=== PATIENT | male | born 1950 | race Caucasian/White ===

== ENCOUNTER 2020-06-20 11:37 | Outpatient (RCR) | payer MEDICARE, BC, SELFPAY | END 2020-06-20 23:59 | LOC: IMMUN 11:37 | PROVIDERS: PCP Family Medicine; Visit Provider Family Medicine | DX: Z23 Encounter for immunization (principal) | CPT/HCPCS: 0011A; 0012A ==

== ENCOUNTER → 2021-03-25 11:45 | Outpatient (CLI) | payer MEDICARE, BC, SELFPAY ==
--- NOTE | 2021-03-25 17:03 | STRESSREP ---
Stress Test Report Exercise stress test. 72-year-old man with a history of chest pain. Medications atorvastatin 80 mg. Stress protocol. Resting EKG demonstrates normal sinus rhythm with a rate of 63 bpm normal intervals are noted resting blood pressure is 128/80 mmHg. The patient exercised according to regular Oracio protocol for 6 minutes and 45 seconds. Patient completed 45 seconds into stage III of the [facility]acio protocol. The maximum heart rate attained was 126 bpm which was 85% of maximum protected heart rate the maximum workload was 9.2 metabolic equivalents. At rest there were no ST changes noted to suggest ischemia and at peak exercise approximately 1.[address] depression were noted in lead aVF and [address] depression noted in lead V6 which was also upsloping. The above did not denote ischemia. The peak blood pressure was 162/62 mmHg with a rate-pressure product of 19,602. No arrhythmias were noted. Conclusion: Exercise stress test with no EKG criteria for ischemia at high workload. Good functional aerobic capacity.
== END ==
PROVIDERS: PCP Family Medicine; Referring Provider Nurse Practitioner Primary Care; Visit Provider Nurse Practitioner Primary Care
DX: R07.9 Chest pain, unspecified (principal)
CPT/HCPCS: 93017

== ENCOUNTER → 2022-10-29 | Outpatient (CLI) | payer MEDICARE, BC, SELFPAY ==
--- NOTE | 2022-10-29 09:30 | STEWCON_ITS ---
Reason For Study: Chest Pain Stress Results Protocol: [facility] Protocol WITH DEFINITY Maximum Predicted HR: 147 bpm Target HR: 125 bpm % Maximum Predicted HR: 88 % DurationHeart Rate Stage (mm:ss) (bpm) BP Comment Baseline 64 118/78No Chest Pain; 4 ML Definity Used [facility]acio Protocol Stage I 3:00 77 124/72No Chest Pain [facility] Protocol Stage II 3:00 85 130/70No Chest Pain [facility] Protocol Stage III 3:00 89 148/60No Chest Pain [facility] Protocol Stage IV 2:30 129 160/64No Chest Pain; Mild Dyspnea Recovery 79 122/78No Chest Pain Stress Duration: 11:30 mm:ss Maximum Stress HR: 129 bpm METS: 13 Baseline Echocardiogram Findings The estimated ejection fraction is 65 %. Normal LV size. Stress Echo Wall motion Data Resting WM Intermediate WM Stress WM Resting Wall Motion No regional wall motion abnormalities noted. EKG Data The baseline ECG displays normal sinus rhythm. Sinus tachycardia with upsloping ST depressions. No significant ischemic changes. Symptoms with Stress The patient experinced No chest pain . ECHO/Stress Test Echo W/Contrast Interpretation Summary The estimated ejection fraction is 65 %. Exercise echocardiogram shows functional capacity to be excellent for age. The test is negative for exercise-induced chest pain or EKG changes of ischemia . Post exercise echocardiographic images are nondiagnostic. Ordering Physician: Vinay Linares Referring Physician: Vinay Linares Performed By: Stephany Maciel, CECE, RVT
== END | disposition home or self-care (01) ==
LOC: CVS 09:27
PROVIDERS: PCP Family Medicine; Referring Provider Family Medicine; Visit Provider Family Medicine
DX: I25.10 Atherosclerotic heart disease of native coronary artery without angina pectoris (principal)
CPT/HCPCS: 93017; 93350; Q9957; A4216; C8928

== ENCOUNTER → 2023-06-10 | Outpatient (CLI) | payer MEDICARE, BC, SELFPAY ==
--- OUTSIDE RECORDS SUMMARY | 2023-06-10 10:15 | XMS RPT_ITS | CCD ---
Author Name Unknown Address [address] [place] [address] Organization [facility] Care Team Providers Care Wind Commissioning Technician Name Role Phone Pacheco Linares MD Primary Care Provider PACHECO LINARES Attending PACHECO Anne Primary Care Unavailab PACHECO Sawyer Attending PACHECO Anne Primary Care Unavailab PACHECO Sawyer Referring Unavailab PACHECO Sawyer Primary Care Unavailab PACHECO Sawyer Referring Unavailab PACHECO Sawyer Primary Care Unavailab PACHECO Sawyer Referring Unavailab PACHECO Sawyer Primary Care UnavailPacheco Love MD Primary Care Provider Medications Current Medications Medication Drug Class(es) Dates Sig (Normalized) Sig (Original) perflutren lipid microspheres 1.3 mL in NaCl (PF) 0.9% 10 mL injection (DEFINITY) (6 sources) Start: 10-17-2022 End: 01-16-2024 perflutren lipid microspheres 1.3 mL in NaCl (PF) 0.9% 10 mL injection (DEFINITY) 125 ml sodium chloride 9 mg/ml prefilled syringe (6 sources) Start: 10-17-2022 End: 01-16-2024 sodium chloride 0.9 % (flush) 10 mL (BD POSIFLUSH) Completed/Discontinued Medications Medication Drug Class(es) Dates Sig (Normalized) Sig (Original) [id number] 200 actuat albuterol 0.09 mg/actuat metered dose inhaler (9 sources) beta2-Adrenergic Agonist Start: 04-10-2020 take 2 puff(s) by inhalation every four hours as needed for wheezing albuterol HFA (VENTOLIN HFA) 90 mcg/actuation inhaler Indications: Chronic obstructive pulmonary disease, unspecified COPD type (HCC) Inhale 2 Puffs as instructed every 4 hours as needed for Wheezing/Shortness of Breath. 18 g 2 04/10/2020 Active Problems Active Problems Problem Classification Problem Date Documented Da te Episodic/Chronic Chronic obstructive pulmonary disease and bronchiectasis (13 sources) Chronic obstructive lung disease; Translations: [Chronic obstructive pulmonary disease, unspecified] Onset: 03-25-2016 Chronic Coronary atherosclerosis and other heart disease (13 sources) Coronary atherosclerosis; Translations: [Atherosclerotic heart disease of [place] coronary artery without angina pectoris] Onset: 04-23-2021 Chronic Disorders of lipid metabolism (13 sources) Hyperlipidemia; Translations: [Hyperlipidemia, unspecified] Onset: 03-25-2016 Chronic Hemorrhoids (9 sources) External hemorrhoids; Translations: [Residual hemorrhoidal skin tags] 10-22-2016 Episodic Hyperplasia of prostate (13 sources) Benign prostatic hyperplasia; Translations: [Benign prostatic hyperplasia without lower urinary tract symptoms] Onset: 10-22-2016 Chronic Other connective tissue disease (1 source) Triggering of digit; Translations: [Trigger finger, right index finger] Episodic Other screening for suspected conditions (not mental disorders or infectious disease) (10 sources) Patient encounter status; Translations: [Encounter for screening for cardiovascular disorders] Onset: 05-21-2020 05-21-2020 Episodic Residual codes; unclassified (12 sources) Tobacco use and exposure - finding; Translations: [Tobacco use] Episodic Past or Other Problems Problem Classification Problem Date Documented Da te Episodic/Chronic Nonspecific chest pain (3 sources) Chest pain; Translations: [Chest pain, unspecified] Onset: 10-17-2022 Episodic Residual codes; unclassified (9 sources) Family history of ischemic heart disease; Translations: [Family history of ischemic heart disease and other diseases of the circulatory system] Onset: 04-16-2016 04-16-2016 Episodic Residual codes; unclassified (1 source) Tobacco use; Translations: [Tobacco use] Onset: 03-25-2016 Episodic Results Test Name Value Interpretation Reference Range Facil ity Vital Signs Date Time Vital Sign Value Performing Clinician Alicia christina 01-19-2023 10:47-0400 Body weight 63.32 kg Pacheco Linares MD Work Phone: [facility] 01-19-2023 10:47-0400 Diastolic blood pressure 60 mm[Hg] Pacheco Linares MD Work Phone: [facility] 01-19-2023 10:47-0400 Heart rate 69 /min Pacheco Linares MD Work Phone: [facility] 01-19-2023 10:47-0400 Respiratory rate 16 /min Pacheco Linares MD Work Phone: [facility] 01-19-2023 10:47-0400 SaO2% (BldA) [Mass fraction] 97 % Pacheco Linares MD Work Phone: [facility] 01-19-2023 10:47-0400 Systolic blood pressure 116 mm[Hg] Pacheco Linares MD Work Phone: [facility] 10-17-2022 09:13-0400 Body weight 62.96 kg Pacheco Linares MD Work Phone: [facility] 10-17-2022 09:13-0400 Diastolic blood pressure 66 mm[Hg] Pacheco Linares MD Work Phone: [facility] 10-17-2022 09:13-0400 Heart rate 59 /min Pacheco Linares MD Work Phone: [facility] 10-17-2022 09:13-0400 Respiratory rate 16 /min Pacheco Linares MD Work Phone: [facility] 10-17-2022 09:13-0400 SaO2% (BldA) [Mass fraction] 97 % Pacheco Linares MD Work Phone: [facility] 10-17-2022 09:13-0400 Systolic blood pressure 116 mm[Hg] Pacheco Linares MD Work Phone: [facility] 10-11-2021 10:28-0400 Body weight 69.4 kg Pacheco Linares MD Work Phone: [facility] 10-11-2021 10:28-0400 Diastolic blood pressure 72 mm[Hg] Pacheco Linares MD Work Phone: [facility] 10-11-2021 10:28-0400 Heart rate 70 /min Pacheco Linares MD Work Phone: [facility] 10-11-2021 10:28-0400 Respiratory rate 16 /min Pacheco Linares MD Work Phone: [facility] 10-11-2021 10:28-0400 SaO2% (BldA) [Mass fraction] 98 % Pacheco Linares MD Work Phone: [facility] 10-11-2021 10:28-0400 Systolic blood pressure 130 mm[Hg] Pacheco Linares MD Work Phone: [facility] Encounters Encounter Date Encounter Type Care Provider Facility Start: 01-19-2023 End: 01-19-2023 ambulatory PACHECO LINARES Facility:[facility] Start: 01-19-2023 End: 01-19-2023 Patient encounter procedure Pacheco Linares MD Work Phone: [facility] Procedures Date Procedure Procedure Detail Performing Clinician Start: 01-19-2023 INFLUENZA VACCINE, P RSV FREE, AGE 65+ YR, HIGH DOSE, QUADRIVALENT (FLUZONE HIGH-DOSE) Pacheco Linares MD Work Phone: Start: 10-17-2022 Ecg routine ecg w/le ast 12 lds i&r only [facility] Provider Start: 10-17-2022 Lipid 1996 panel - S christy or Plasma Pacheco Linares MD Work Phone: Start: 07-09-2021 Colonoscopy Juan Linares MD Work Phone: Start: 2021 Adult depression scr eening assessment Pacheco Linares MD Work Phone: Plan of Treatment Date Care Activity Detail Author Start: 07-10-2031 Colonoscopy COLONOSCOPY [facility] Start: 07-10-2031 COLORECTAL CANCER SCREENING COLORECTAL CANCER SCREENING [facility] Start: 10-18-2027 Lipid 1996 panel - S christy or Plasma Lipid Screening [facility] Start: 10-18-2027 LIPID SCREEN LIPID SCREEN [facility] Start: 07-30-2026 Urine microalbumin profile [facility] Start: 04-12-2026 LIPID SCREEN LIPID SCREEN [facility] Start: 10-17-2025 DIABETES SCREEN DIABETES SCREEN [facility] Start: 10-17-2025 Diabetes Screening Diabetes Screenin g [facility] Start: 04-12-2024 DIABETES SCREEN DIABETES SCREEN [facility] Start: 01-20-2024 Annual PCP Team Child Development Associate Teacher annalee Disease Visit Annual PCP Team Chronic Disease Visit [facility] Start: 01-20-2024 Covid-19 Vaccine (4 - Moderna series) Covid-19 Vaccine (4 - Moderna series) [facility] Immunizations Immunization Date Immunization Notes Care Provider Fa cility 01-19-2023 influenza (HD-IIV4) vaccine, age 65+ yr, high dose, quadrivalent, PF (FLUZONE HIGH-DOSE) Pacheco Linares MD Work Phone: [facility] 01-13-2023 zoster vaccine recombinant Pacheco Linares MD Work Phone: [facility] 10-17-2022 zoster vaccine recombinant Pacheco Linares MD Work Phone: [facility] 04-12-2021 influenza, high-dose , quadrivalent vaccine (FLUZONE HIGH DOSE QUADRIVALENT) Pacheco Linares MD Work Phone: [facility] 07-18-2020 COVID-19 vaccine, fu ll dose (MODERNA) Pacheco Linares MD Work Phone: [facility] 06-20-2020 COVID-19 vaccine, fu ll dose (MODERNA) Pacheco Linares MD Work Phone: [facility] 04-10-2020 influenza, high-dose , quadrivalent vaccine (FLUZONE HIGH DOSE QUADRIVALENT) Pacheco Linares MD Work Phone: [facility] 01-26-2017 influenza, high dose seasonal, preservative-free Pacheco Linares MD Work Phone: [facility] 07-30-2016 tetanus toxoid, redu madie diphtheria toxoid, and acellular pertussis vaccine, adsorbed Pacheco Linares MD Work Phone: [facility] Work Phone: 02-18-2016 hepatitis A and hepatitis B vaccine Pacheco Linares MD Work Phone: [facility] 02-18-2016 pneumococcal polysaccharide vaccine, 23 valent Pacheco Linares MD Work Phone: [facility] 02-14-2016 influenza, high dose seasonal, preservative-free Pacheco Linares MD Work Phone: [facility] 02-04-2016 influenza, injectabl e, quadrivalent, preservative free Pacheco Linares MD Work Phone: [facility] Work Phone: 03-08-2015 influenza, injectabl e, quadrivalent, contains preservative Pacheco Linares MD Work Phone: [facility] 03-08-2015 influenza, seasonal, injectable Pacheco Linares MD Work Phone: [facility] Work Phone: 11-10-2014 pneumococcal conjuga te vaccine, 13 valent Pacheco Linares MD Work Phone: [facility] 11-10-2014 varicella virus vaccine Chri batool Linares MD Work Phone: [facility] 11-10-2014 zoster vaccine, live Ravi Linares MD Work Phone: [facility] Work Phone: 02-07-2014 influenza, injectabl e, quadrivalent, contains preservative Pacheco Linares MD Work Phone: [facility] 02-07-2014 influenza, seasonal, injectable Pacheco Linares MD Work Phone: [facility] Work Phone: 04-06-2013 influenza, injectabl e, quadrivalent, contains preservative Pacheco Linares MD Work Phone: [facility] 04-06-2013 influenza, seasonal, injectable Pacheco Linares MD Work Phone: [facility] Work Phone: 02-03-2012 influenza, seasonal, injectable Pacheco Linares MD Work Phone: [facility] Work Phone: 11-14-2010 hepatitis A vaccine, adult dosage Pacheco Linares MD Work Phone: [facility] Work Phone: 11-14-2010 hepatitis A vaccine, unspecified formulation Pacheco Linares MD Work Phone: [facility] 11-14-2010 hepatitis B immune globulin Pacheco Linares MD Work Phone: [facility] 11-14-2010 hepatitis B vaccine, adult dosage Pacheco Linares MD Work Phone: [facility] Work Phone: 11-14-2010 tetanus toxoid, redu madie diphtheria toxoid, and acellular pertussis vaccine, adsorbed Pacheco Linares MD Work Phone: [facility] 02-23-2010 influenza, seasonal, injectable Pacheco Linares MD Work Phone: [facility] Work Phone: Payers Date Payer Category Payer Medicare MEDICARE MEDICAR E A AND B [id number] 2017-Present [phone] [place] [address] Medicare [id number] 2017 Medicare MEDICARE MEDICAR E A AND B [id number] 2017-Present [phone] [place] [address] Medicare [id number] 2017 Medicare [id number] 2017 Medicare [id number] 2017 Unknown MELVIN CARRIZALES DICARE SUPPLEMENT [id number] 2017-Present [phone] [address] [place] [address] Indemnity [id number] 2017 Unknown MELVIN CARRIZALES DICARE SUPPLEMENT [id number] 2017-Present [phone] [address] [place] [address] Indemnity [id number] Social History Date Type Detail Facility Start: 10-11-2021 End: 01-19-2023 Tobacco smoking status NHIS Smokes tobacco daily [facility] End: 02-10-2021 History of tobacco use Cigarette Smoker [facility] Start: 10-11-2021 End: 10-12-2022 Cigarettes smoked current (pack per day) - Reported 0.5 [facility] Start: 10-11-2021 End: 01-19-2023 Tobacco use and exposure Smokeless tobacco non-user [facility] Start: 10-11-2021 End: 10-17-2022 Alcohol intake Current drinker of alcohol (finding) [facility] Start: 09-12-2019 History SDOH Alcohol Frequency 5 [facility] Start: 09-12-2019 End: 10-12-2022 History SDOH Alcohol Std Drinks 1 [facility] Start: 09-12-2019 History SDOH Social Connections Phone 4 [facility] Start: 09-12-2019 End: 10-12-2022 History SDOH Social Connections Get Together 2 [facility] Start: 09-12-2019 History SDOH Social Connections Living 3 [facility] Start: 09-12-2019 Education 18 [facility] Start: 1950 Sex Assigned At Not on file [facility] Start: 10-01-2021 End: 10-11-2021 Exposure to SARS-CoV-2 (event) Not sure [facility] Start: 10-12-2022 History SDOH Alcohol Std Drinks 0 [facility] Start: 10-12-2022 History SDOH Social Connections Phone 98 [facility] Start: 10-17-2022 Tobacco Comment No cigarette i n last 3 days [facility] Start: 10-12-2022 End: 01-19-2023 Social connection and isolation panel [facility] In a typical week, h ow many times do you talk on the telephone with family, friends, or neighbors? Patient refused [facility] Are you now , , , , never or living with a partner? Refused [facility] How often to you hav e a drink containing alcohol? Never [facility] (I/We) worried wheth er (my/our) food would run out before (I/we) got money to buy more. DK or Refused [facility] In the past 12 month s, was there a time when you were not able to pay the mortgage or rent on time? No [facility] Start: 2021 Gender identity Identifies as male gender (finding) [facility] Start: 01-19-2023 Alcohol intake Ex-drinker (finding) [facility] Clinical Notes 10-11-2021 to 01-19-2023 Pacheco Linares MD - 01/19/2023 10:55 AM EDTTelephone Encounter - Lindsay Smith LPN - 01/01/2023 3:16 PM EDTTelephone Encounter - Li Valentino MA - 10/29/2022 2:50 PM EDT Note Date & Type Note Facility 01-19-2023 Note HNO ID: [id number] Author: Pacheco Linares MD Service: ? Author Type: Physician Type: Progress Notes Filed: 01/25/2023 7:01 AM Note Text: Chief Complaint Patient presents with: Follow Up: 3 month follow up HPI Columba Ag is a 72 year old male who presents here today for Above Complaints.. Previous HPI: CAD: Patient states that over the last 1-2 weeks he was getting chest discomfort with exertion such as digging holes and planting shrubs. Pain located on right chest. Treating with Aleve which did improve his pain. Improved with rest as well. Denies radiation to neck or jaw, sweating, nausea, SOB, palpitations, lightheadedness. Has not followed up with cardiology in over a year. Last stress test in 2020 negative for ischemia. COPD: continues to need albuterol very rarely. Denies cough, wheezing, SOB. BPH: asymptomatic without rx. Has appointment next month with Dr. Wright for left and right cataract surgery. Using nicotine patch for the last 3 days to try to quit smoking and has been abstaining from alcohol. Interim: CAD: negative exercise stress test completed in October. Established care with [facility] cardiology in October without change to regimen or recommendation for additional imaging/cath. F/u in 6 months. No chest pain, palpitations, or SOB since last OV. Taking ASA and lipitor as prescribed without side effects. Has not need albuterol at all in the last 3 months for his COPD. Still smoking about 1/2 pack per day. Not ready to quit smoking today. BPH: asymptomatic without medications. PHQ-2 / Depression screen He in the past two weeks denies having felt down, depressed, hopeless or with little interest or pleasure in doing things. Up to date on shingrix vaccine. Due for influenza vaccine today. Past medical history, appointments, medications, allergies reviewed. Previous Medical History PAST MEDICAL HISTORY Diagnosis Date BPH (benign prostatic hyperplasia) Cataracts, bilateral Dr. Wright COPD (chronic obstructive pulmonary disease) ([facility]) Normal PFT 2019 Coronary artery disease 100% Cx, 50% LAD Eczema External hemorrhoids Hard of hearing Hearing aids Hyperlipidemia Tobacco use Previous Surgical History PAST SURGICAL HISTORY Procedure Laterality Date COLONOSCOPY COLONOSCOPY 07/09/2021 repeat in 10 years EYE SURGERY HX HEART CATHETERIZATION 2012 Family History FAMILY HISTORY Problem Relation Age of Onset Coronary Artery Disease Father Lipids Father Alcohol/Drug Mother alcohol Cancer Mother lung Coronary Artery Disease Brother Coronary Artery Disease Maternal Uncle Patient Allergies ALLERGIES No Known Allergies Current Medications Current Outpatient Medications on File Prior to Visit Medication Sig atorvastatin (LIPITOR) 80 mg tablet Take 1 tablet by mouth once daily. nitroglycerin sublingual (NITROSTAT) 0.4 mg SL tablet Dissolve 1 tablet under the tongue every 5 minutes as needed for chest pain. albuterol HFA (VENTOLIN HFA) 90 mcg/actuation inhaler Inhale 2 Puffs as instructed every 4 hours as needed for Wheezing/Shortness of Breath. aspirin, enteric coated (ASPIRIN, ENTERIC COATED) 81 mg EC tablet Take 81 mg by mouth once daily. Current Facility-Administered Medications on File Prior to Visit Medication perflutren lipid microspheres 1.3 mL in NaCl (PF) 0.9% 10 mL injection (DEFINITY) sodium chloride 0.9 % (flush) 10 mL (BD POSIFLUSH) Social History Social History Tobacco Use Smoking status: Every Day Packs/day: 0.50 Years: 37.00 Additional pack years: 0.00 Total pack years: 18.50 Types: Cigarettes Smokeless tobacco: Never Tobacco comments: No cigarette in last 3 days Substance Use Topics Alcohol use: Yes Alcohol/week: 35.0 standard drinks of alcohol Types: 14 Cans of Beer (12oz) per week Drug use: No Review of Symptoms REVIEW OF SYSTEMS GENERAL: No weight loss, malaise or fevers RESPIRATORY: Negative for cough, hemoptysis, wheezing, COPD, dyspnea or shortness of breath CARDIOVASCULAR: Negative for chest pain, leg swelling, hypertension, CHF or palpitations GI: No nausea, vomiting, or diarrhea SKIN: Negative for lesions, rash, and itching EXAM: BP 116/60 Pulse 69 Resp 16 Wt 63.3 kg (139 lb 9.6 oz) SpO2 97% BMI 21.54 kg/m? General Appearance: Well appearing, alert, in no acute distress, well-hydrated, well nourished.. Skin: Skin color, texture, turgor normal, no suspicious rashes or lesions. Lungs: Lungs clear to auscultation. No wheezing, rhonchi, rales.. Heart: RRR without murmur, gallop, or rubs. No ectopy. Abdomen: Normal abdominal exam, Abdomen soft, non-tender. Bowel sounds normal. No masses, organomegaly. Extremities: No deformities, edema, skin discoloration, clubbing or cyanosis. Good capillary refill. . Health Maintenance List Alpha-1 Antitrypsin Deficiency Screening Never done Covid-19 Vaccine(4 - Moderna series) due (more content not included)... [facility] 01-19-2023 History of Presen t illness Narrative Chief Complaint Patient presents with: Follow Up: 3 month follow up HPI Columba Ag is a 72 year old male who presents here today for Above Complaints.. Previous HPI: CAD: Patient states that over the last 1-2 weeks he was getting chest discomfort with exertion such as digging holes and planting shrubs. Pain located on right chest. Treating with Aleve which did improve his pain. Improved with rest as well. Denies radiation to neck or jaw, sweating, nausea, SOB, palpitations, lightheadedness. Has not followed up with cardiology in over a year. Last stress test in 2020 negative for ischemia. COPD: continues to need albuterol very rarely. Denies cough, wheezing, SOB. BPH: asymptomatic without rx. Has appointment next month with Dr. Wright for left and right cataract surgery. Using nicotine patch for the last 3 days to try to quit smoking and has been abstaining from alcohol. Interim: CAD: negative exercise stress test completed in October. Established care with [facility] cardiology in October without change to regimen or recommendation for additional imaging/cath. F/u in 6 months. No chest pain, palpitations, or SOB since last OV. Taking ASA and lipitor as prescribed without side effects. Has not need albuterol at all in the last 3 months for his COPD. Still smoking about 1/2 pack per day. Not ready to quit smoking today. BPH: asymptomatic without medications. PHQ-2 / Depression screen He in the past two weeks denies having felt down, depressed, hopeless or with little interest or pleasure in doing things. Up to date on shingrix vaccine. Due for influenza vaccine today. Past medical history, appointments, medications, allergies reviewed. Previous Medical History PAST MEDICAL HISTORY Diagnosis Date BPH (benign prostatic hyperplasia) Cataracts, bilateral Dr. Wright COPD (chronic obstructive pulmonary disease) ([facility]) Normal PFT 2019 Coronary artery disease 100% Cx, 50% LAD Eczema External hemorrhoids Hard of hearing Hearing aids Hyperlipidemia Tobacco use Previous Surgical History PAST SURGICAL HISTORY Procedure Laterality Date COLONOSCOPY COLONOSCOPY 07/09/2021 repeat in 10 years EYE SURGERY HX HEART CATHETERIZATION 2012 Family History FAMILY HISTORY Problem Relation Age of Onset Coronary Artery Disease Father Lipids Father Alcohol/Drug Mother alcohol Cancer Mother lung Coronary Artery Disease Brother Coronary Artery Disease Maternal Uncle Patient Allergies ALLERGIES No Known Allergies Current Medications Current Outpatient Medications on File Prior to Visit Medication Sig atorvastatin (LIPITOR) 80 mg tablet Take 1 tablet by mouth once daily. nitroglycerin sublingual (NITROSTAT) 0.4 mg SL tablet Dissolve 1 tablet under the tongue every 5 minutes as needed for chest pain. albuterol HFA (VENTOLIN HFA) 90 mcg/actuation inhaler Inhale 2 Puffs as instructed every 4 hours as needed for Wheezing/Shortness of Breath. aspirin, enteric coated (ASPIRIN, ENTERIC COATED) 81 mg EC tablet Take 81 mg by mouth once daily. Current Facility-Administered Medications on File Prior to Visit Medication perflutren lipid microspheres 1.3 mL in NaCl (PF) 0.9% 10 mL injection (DEFINITY) sodium chloride 0.9 % (flush) 10 mL (BD POSIFLUSH) Social History Social History Tobacco Use Smoking status: Every Day Packs/day: 0.50 Years: 37.00 Additional pack years: 0.00 Total pack years: 18.50 Types: Cigarettes Smokeless tobacco: Never Tobacco comments: No cigarette in last 3 days Substance Use Topics Alcohol use: Yes Alcohol/week: 35.0 standard drinks of alcohol Types: 14 Cans of Beer (12oz) per week Drug use: No Review of Symptoms REVIEW OF SYSTEMS GENERAL: No weight loss, malaise or fevers RESPIRATORY: Negative for cough, hemoptysis, wheezing, COPD, dyspnea or shortness of breath CARDIOVASCULAR: Negative for chest pain, leg swelling, hypertension, CHF or palpitations GI: No nausea, vomiting, or diarrhea SKIN: Negative for lesions, rash, and itching EXAM: BP 116/60 Pulse 69 Resp 16 Wt 63.3 kg (139 lb 9.6 oz) SpO2 97% BMI 21.54 kg/m General Appearance: Well appearing, alert, in no acute distress, well-hydrated, well nourished.. Skin: Skin color, texture, turgor normal, no suspicious rashes or lesions. Lungs: Lungs clear to auscultation. No wheezing, rhonchi, rales.. Heart: RRR without murmur, gallop, or rubs. No ectopy. Abdomen: Normal abdominal exam, Abdomen soft, non-tender. Bowel sounds normal. No masses, organomegaly. Extremities: No deformities, edema, skin discoloration, clubbing or cyanosis. Good capillary refill. . Health Maintenance List Alpha-1 Antitrypsin Deficiency Screening Never done Covid-19 Vaccine(4 - Moderna series) due on 06/25/2021 Advance Directive Discussion Never done Depression Assessment Never done Influenza Vaccine(1) due on 12/26/2022 LDL Cholesterol due on 10/18/2023 Annual PCP Team Chronic Disease Visit due on 10/18/2023 Diabetes Screening due on 10/17/2025 DTaP,Tdap,Td Vaccine(3 - Td or Tdap) due on 07/30/2026 Lipid Screening due on 10/18/2027 Colorectal Cancer Screening due on 07/10/2031 Spirometry Completed Abdominal Aortic Aneurysm Screening Completed Hepatitis C Screening Completed Shingrix Vaccine Completed Pneumococcal Vaccine: 65+ Completed Data reviewed Component Latest Ref Rng & Units 10/17/2022 WBC 3.70 - 11.00 k/uL 8.84 RBC 4.20 - 6.00 m/uL 4.61 Hemoglobin 13.0 - 17.0 g/dL 15.2 Hematocrit 39.0 - 51.0 % 45.0 MCV 80.0 - 100.0 fL 97.6 MCH 26.0 - 34.0 pg 33.0 MCHC 30.5 - 36.0 g/dL 33.8 RDW-CV 11.5 - 15.0 % 12.1 Platelet Count 150 - 400 k/uL 204 MPV 9.0 - 12.7 fL 10.8 Neut% % 73.7 Abs Neut (ANC) 1.45 - 7.50 k/uL 6.51 Lymph% % 15.5 Abs Lymph 1.00 - 4.00 k/uL 1.37 [place]% % 8.1 Abs [place] <0.87 k/uL 0.72 Eosin% % 1.8 Abs Eosin <0.46 k/uL 0.16 Baso% % 0.6 Abs Baso <0.11 k/uL 0.05 Immature Gran % % 0.3 IMMATURE GRANS (ABS) <0.10 k/uL 0.03 NRBC /100 WBC 0.0 Absolute nRBC <0.01 k/uL <0.01 DTYPE Auto Protein, Total 6.3 - 8.0 g/dL 7.3 Albumin 3.9 - 4.9 g/dL 4.3 Calcium 8.5 - 10.2 mg/dL 9.5 Bilirubin, Total 0.2 - 1.3 mg/dL 0.7 Alkaline Phosphatase 38 - 113 U/L 83 AST 14 - 40 U/L 28 ALT 10 - 54 U/L 22 Glucose 74 - 99 mg/dL 85 BUN 9 - 24 mg/dL 14 Creatinine 0.73 - 1.22 mg/dL 0.87 Sodium 136 - 144 mmol/L 141 Potassium 3.7 - 5.1 mmol/L 4.5 Chloride 97 - 105 mmol/L 103 CO2 22 - 30 mmol/L 26 Anion Gap 9 - 18 mmol/L 12 eGFR >=60 mL/min/1.73m 91 Total Cholesterol, Nonfasting <200 mg/dL 110 Triglycerides, Nonfasting <150 mg/dL 45 HDL Cholesterol, Nonfasting >39 mg/dL 39 (L) LDL Cholesterol, Nonfasting <100 mg/dL 62 Non HDL Cholesterol, Nonfasting <130 mg/dL 71 VLDL Cholesterol, Nonfasting <30 mg/dL 9 Total Chol/HDL Ratio, Nonfasting <5.10 mg/dL 2.82 LDL/HDL Ratio, Nonfasting <2.54 mg/dL 1.59 ASSESSMENT/PLAN: 1. Coronary artery disease involving houl[place] coronary artery of h[place] heart without angina pectoris - ICD9: 414.01, ICD10: I25.10 (primary diagnosis) Stable on current regimen. No new angina. F/u with cardiology as recommended. 2. Chest pain, unspecified type - ICD9: 786.50, ICD10: R07.9 Resolved. 3. Chronic obstructive pulmonary disease, unspecified COPD type (HCC) - ICD9: 496, ICD10: J44.9 Stable. Continue current regimen. Avoid triggers. 4. Hyperlipidemia, unspecified hyperlipidemia type - ICD9: 272.4, ICD10: E78.5 - Controlled - Continue current medications - Counseled on healthy diet and regular exercise 5. Benign prostatic hyperplasia without lower urinary tract symptoms - ICD9: 600.00, ICD10: N40.0 Asymptomatic without rx. Will monitor. 6. Tobacco use - ICD9: 305.1, ICD10: Z72.0 - Cessation encouraged. - Physiologic and physical aspects of tobacco addiction as well as strategies for quitting were discussed. - Counseling was given focusing on the harmful effects of this addiction especially given the patient's medical condition(s) which will be worsened because of the chemicals in tobacco. 7. Encounter for immunization - ICD9: V03.89, ICD10: Z23 - INFLUENZA VACCINE, PRSV FREE, AGE 65+ YR, HIGH DOSE, QUADRIVALENT (FLUZONE HIGH-DOSE) Pacheco Linares MD documented in this encounter [facility] 01-01-2023 Miscellaneous Notes Patient phones requesting refills as follows: Requested Prescriptions Pending Prescriptions Disp Refills atorvastatin (LIPITOR) 80 mg tablet 90 tablet 0 Sig: Take 1 tablet by mouth once daily. RUPERT-10/17/22 Labs-10/17/22 NOV-01/19/23 Please review and advise. Lindsay Smith LPN documented in this encounter [facility] 10-29-2022 Miscellaneous Notes Patient notified and verbalized understanding. Li Valentino MA Exercise stress testing negative for signs of blockage with high workload. Heart pumping effectively with EF 65%. Continue current regimen. Stress/Stress Echo received from [facility]. Given to Dr. Linares for review. Li Valentino MA documented in this encounter [facility] 10-20-2022 Miscellaneous Notes Mychart message sent to pt notifying him of results below from Provider. If questions to contact the office. Christa Jean Ma ----- Message from Pacheco Linares MD sent at 10/20/2022 10:35 AM EDT ----- Stable CXR. No acute infection or fluid overload. documented in this encounter [facility] 10-20-2022 Miscellaneous Notes Mychart message sent to pt notifying him of results below. If questions to contact the office. Christa Jean Ma ----- Message from Pacheco Linares MD sent at 10/20/2022 10:42 AM EDT ----- Normal labs. No change to regimen. documented in this encounter [facility] 10-17-2022 Note HNO ID: [id number] Author: RT Edgar(R) Service: ? Author Type: Chute Puller Type: Progress Notes Filed: 10/17/2022 10:42 AM Note Text: Radiology Service Progress Note PATIENT NAME: Columba Ag DATE OF SERVICE: October 17, 2022 TIME: 10:34 AM PATIENT IDENTITY VERIFICATION COMPLETED USING TWO (2) IDENTIFIERS: Name and Date of confirmed by patient verbally. FALL SCREENING: Has the patient had 2 falls in the last year or 1 fall with injury or currently using an Ambulatory Assistive Device (Walker, Cane, Wheelchair, Crutches, etc.)? No PATIENT GENDER DATA: Male PATIENT RELEVANT IMPLANT DATA REVIEWED: Yes RADIOLOGY DEPARTMENT: General X-ray: Exam(s) Completed: Chest X-Ray PERIPHERAL IV DATA: Not applicable SIGNED BY: RT Edgar(R) October 17, 2022 10:34 AM [facility] 10-17-2022 Note HNO ID: [id number] Author: Pacheco Linares MD Service: ? Author Type: Physician Type: Progress Notes Filed: 10/17/2022 10:11 AM Note Text: Chief Complaint Patient presents with: annual appt HPI Columba Ag is a 72 year old male who presents here today for routine follow up. Previous HPI: History of CAD managed by Dr. Chamorro-cardiology. No changes to regimen at last OV in April. Patient without angina at that time. Recommended 1 year follow up. Taking Lipitor as prescribed without side effects. COPD: Patient notes rare albuterol use once every couple weeks for tightness with breathing. Working well for symptoms. Started smoking again about 2 months ago when grand daughter moved in. Up to 1/3 pack per day. Not ready to quit yet. BPH: doing well without medication. Getting up once at night to urinate. Denies weak stream, straining, hematuria. Right index finger occasionally sticking on flexion. Able to straighten on own without pain. No recent injury. Colonoscopy normal in June. Repeat in 10 years. Interim: CAD: Patient states that over the last 1-2 weeks he was getting chest discomfort with exertion such as digging holes and planting shrubs. Pain located on right chest. Treating with Aleve which did improve his pain. Improved with rest as well. Denies radiation to neck or jaw, sweating, nausea, SOB, palpitations, lightheadedness. Has not followed up with cardiology in over a year. Last stress test in 2020 negative for ischemia. COPD: continues to need albuterol very rarely. Denies cough, wheezing, SOB. BPH: asymptomatic without rx. Has appointment next month with Dr. Wright for left and right cataract surgery. Using nicotine patch for the last 3 days to try to quit smoking and has been abstaining from alcohol. Past medical history, appointments, medications, allergies reviewed. Previous Medical History PAST MEDICAL HISTORY Diagnosis Date BPH (benign prostatic hyperplasia) Cataracts, bilateral Dr. Wright COPD (chronic obstructive pulmonary disease) ([facility]) Normal PFT 2019 Coronary artery disease 100% Cx, 50% LAD Eczema External hemorrhoids Hard of hearing Hearing aids Hyperlipidemia Tobacco use Previous Surgical History PAST SURGICAL HISTORY Procedure Laterality Date COLONOSCOPY COLONOSCOPY 07/09/2021 repeat in 10 years EYE SURGERY HX HEART CATHETERIZATION 2012 Family History FAMILY HISTORY Problem Relation Age of Onset Coronary Artery Disease Father Lipids Father Alcohol/Drug Mother alcohol Cancer Mother lung Coronary Artery Disease Brother Coronary Artery Disease Maternal Uncle Patient Allergies ALLERGIES No Known Allergies Current Medications Current Outpatient Medications on File Prior to Visit Medication Sig atorvastatin (LIPITOR) 80 mg tablet Take 1 tablet by mouth once daily. albuterol HFA (VENTOLIN HFA) 90 mcg/actuation inhaler Inhale 2 Puffs as instructed every 4 hours as needed for Wheezing/Shortness of Breath. aspirin, enteric coated (ASPIRIN, ENTERIC COATED) 81 mg EC tablet Take 81 mg by mouth once daily. doxylamine succinate (SLEEP AID ORAL) Take by mouth. 3 at bedtime (Patient not taking: Reported on 10/17/2022) No current facility-administered medications on file prior to visit. Social History Social History Tobacco Use Smoking status: Every Day Packs/day: 0.50 Years: 37.00 Pack years: 18.50 Types: Cigarettes Smokeless tobacco: Never Tobacco comments: No cigarette in last 3 days Substance Use Topics Alcohol use: Yes Alcohol/week: 35.0 standard drinks Types: 14 Cans of Beer (12oz) per week Drug use: No Review of Symptoms REVIEW OF SYSTEMS GENERAL: No weight loss, malaise or fevers RESPIRATORY: See HPI CARDIOVASCULAR: See HPI GI: No nausea, vomiting, or diarrhea SKIN: Negative for lesions, rash, and itching EXAM: BP 116/66 Pulse (!) 59 Resp 16 Wt 63 kg (138 lb 12.8 oz) SpO2 97% BMI 21.42 kg/m? General Appearance: Well appearing, alert, in no acute distress, well-hydrated, well nourished.. Skin: Skin color, texture, turgor normal, no suspicious rashes or lesions. Lungs: Lungs clear to auscultation. No wheezing, rhonchi, rales.. Heart: RRR without murmur, gallop, or rubs. No ectopy. Abdomen: Normal abdominal exam, Abdomen soft, non-tender. Bowel sounds normal. No masses, organomegaly. Extremities: No deformities, edema, skin discoloration, clubbing or cyanosis. Good capillary refill. . Health Maintenance List ALPHA-1 ANTITRYPSIN DEFICIENCY SCREENING Never done SHINGRIX VACCINE(1 of 2) Never done DTAP,TDAP,TD(2 - Td or Tdap) due on 11/14/2020 COVID-19 VACCINE(4 - Booster for Moderna series) due on 06/25/2021 LDL CHOLESTEROL due on 04/12/2022 ADVANCE DIRECTIVE DISCUSSION Never done DEPRESSION ASSESSMENT Never done ANNUAL PCP TEAM CHRONIC DISEASE VISIT due on 10/11/2022 INFLUENZA(Season Ended) due on 12/26/2022 DI (more content not included)... [facility] 10-17-2022 History of Presen t illness Narrative Chief Complaint Patient presents with: annual appt HPI Columba Ag is a 72 year old male who presents here today for routine follow up. Previous HPI: History of CAD managed by Dr. Chamorro-cardiology. No changes to regimen at last OV in April. Patient without angina at that time. Recommended 1 year follow up. Taking Lipitor as prescribed without side effects. COPD: Patient notes rare albuterol use once every couple weeks for tightness with breathing. Working well for symptoms. Started smoking again about 2 months ago when grand daughter moved in. Up to 1/3 pack per day. Not ready to quit yet. BPH: doing well without medication. Getting up once at night to urinate. Denies weak stream, straining, hematuria. Right index finger occasionally sticking on flexion. Able to straighten on own without pain. No recent injury. Colonoscopy normal in June. Repeat in 10 years. Interim: CAD: Patient states that over the last 1-2 weeks he was getting chest discomfort with exertion such as digging holes and planting shrubs. Pain located on right chest. Treating with Aleve which did improve his pain. Improved with rest as well. Denies radiation to neck or jaw, sweating, nausea, SOB, palpitations, lightheadedness. Has not followed up with cardiology in over a year. Last stress test in 2020 negative for ischemia. COPD: continues to need albuterol very rarely. Denies cough, wheezing, SOB. BPH: asymptomatic without rx. Has appointment next month with Dr. Wright for left and right cataract surgery. Using nicotine patch for the last 3 days to try to quit smoking and has been abstaining from alcohol. Past medical history, appointments, medications, allergies reviewed. Previous Medical History PAST MEDICAL HISTORY Diagnosis Date BPH (benign prostatic hyperplasia) Cataracts, bilateral Dr. Wright COPD (chronic obstructive pulmonary disease) ([facility]) Normal PFT 2019 Coronary artery disease 100% Cx, 50% LAD Eczema External hemorrhoids Hard of hearing Hearing aids Hyperlipidemia Tobacco use Previous Surgical History PAST SURGICAL HISTORY Procedure Laterality Date COLONOSCOPY COLONOSCOPY 07/09/2021 repeat in 10 years EYE SURGERY HX HEART CATHETERIZATION 2012 Family History FAMILY HISTORY Problem Relation Age of Onset Coronary Artery Disease Father Lipids Father Alcohol/Drug Mother alcohol Cancer Mother lung Coronary Artery Disease Brother Coronary Artery Disease Maternal Uncle Patient Allergies ALLERGIES No Known Allergies Current Medications Current Outpatient Medications on File Prior to Visit Medication Sig atorvastatin (LIPITOR) 80 mg tablet Take 1 tablet by mouth once daily. albuterol HFA (VENTOLIN HFA) 90 mcg/actuation inhaler Inhale 2 Puffs as instructed every 4 hours as needed for Wheezing/Shortness of Breath. aspirin, enteric coated (ASPIRIN, ENTERIC COATED) 81 mg EC tablet Take 81 mg by mouth once daily. doxylamine succinate (SLEEP AID ORAL) Take by mouth. 3 at bedtime (Patient not taking: Reported on 10/17/2022) No current facility-administered medications on file prior to visit. Social History Social History Tobacco Use Smoking status: Every Day Packs/day: 0.50 Years: 37.00 Pack years: 18.50 Types: Cigarettes Smokeless tobacco: Never Tobacco comments: No cigarette in last 3 days Substance Use Topics Alcohol use: Yes Alcohol/week: 35.0 standard drinks Types: 14 Cans of Beer (12oz) per week Drug use: No Review of Symptoms REVIEW OF SYSTEMS GENERAL: No weight loss, malaise or fevers RESPIRATORY: See HPI CARDIOVASCULAR: See HPI GI: No nausea, vomiting, or diarrhea SKIN: Negative for lesions, rash, and itching EXAM: BP 116/66 Pulse (!) 59 Resp 16 Wt 63 kg (138 lb 12.8 oz) SpO2 97% BMI 21.42 kg/m General Appearance: Well appearing, alert, in no acute distress, well-hydrated, well nourished.. Skin: Skin color, texture, turgor normal, no suspicious rashes or lesions. Lungs: Lungs clear to auscultation. No wheezing, rhonchi, rales.. Heart: RRR without murmur, gallop, or rubs. No ectopy. Abdomen: Normal abdominal exam, Abdomen soft, non-tender. Bowel sounds normal. No masses, organomegaly. Extremities: No deformities, edema, skin discoloration, clubbing or cyanosis. Good capillary refill. . Health Maintenance List ALPHA-1 ANTITRYPSIN DEFICIENCY SCREENING Never done SHINGRIX VACCINE(1 of 2) Never done DTAP,TDAP,TD(2 - Td or Tdap) due on 11/14/2020 COVID-19 VACCINE(4 - Booster for Moderna series) due on 06/25/2021 LDL CHOLESTEROL due on 04/12/2022 ADVANCE DIRECTIVE DISCUSSION Never done DEPRESSION ASSESSMENT Never done ANNUAL PCP TEAM CHRONIC DISEASE VISIT due on 10/11/2022 INFLUENZA(Season Ended) due on 12/26/2022 DIABETES SCREEN due on 04/12/2024 LIPID SCREEN due on 04/12/2026 COLORECTAL CANCER SCREENING due on 07/10/2031 SPIROMETRY Completed ABDOMINAL AORTIC ANEURYSM SCREENING Completed HEPATITIS C SCREENING Completed PNEUMOCOCCAL: 65+ Completed Data reviewed Component Latest Ref Rng & Units 03/11/2021 04/12/2021 Protein, Total 6.3 - 8.0 g/dL 7.5 Albumin 3.9 - 4.9 g/dL 4.6 Calcium 8.5 - 10.2 mg/dL 9.4 Bilirubin, Total 0.2 - 1.3 mg/dL 0.4 Alkaline Phosphatase 38 - 113 U/L 77 AST 14 - 40 U/L 27 Glucose 74 - 99 mg/dL 89 BUN 9 - 24 mg/dL 14 Creatinine 0.73 - 1.22 mg/dL 1.01 Sodium 136 - 144 mmol/L 139 Potassium 3.7 - 5.1 mmol/L 4.5 Chloride 97 - 105 mmol/L 104 CO2 22 - 30 mmol/L 27 Anion Gap 9 - 18 mmol/L 8 (L) ALT 10 - 54 U/L 21 eGFR- >60 eGFR-All Other Races . >60 WBC 3.70 - 11.00 k/uL 7.51 RBC 4.20 - 6.00 m/uL 4.52 Hemoglobin 13.0 - 17.0 g/dL 13.5 Hematocrit 39.0 - 51.0 % 42.2 MCV 80.0 - 100.0 fL 93.4 MCH 26.0 - 34.0 pG 29.9 MCHC 30.5 - 36.0 g/dL 32.0 RDW-CV 11.5 - 15.0 % 13.9 Platelet Count 150 - 400 k/uL 272 MPV 9.0 - 12.7 fL 10.5 Absolute nRBC <0.01 k/uL <0.01 Total Cholesterol, Nonfasting <200 mg/dL 132 Triglycerides, Nonfasting <150 mg/dL 65 HDL Cholesterol, Nonfasting >39 mg/dL 49 LDL Cholesterol, Nonfasting <100 mg/dL 70 Non HDL Cholesterol, Nonfasting <130 mg/dL 83 VLDL Cholesterol, Nonfasting <30 mg/dL 13 Total Chol/HDL Ratio, Nonfasting <5.10 mg/dL 2.69 LDL/HDL Ratio, Nonfasting <2.54 mg/dL 1.43 d Dimer <500 ng/mL FEU 340 EKG: Sinus bradycardia at 56 bpm, otherwise normal EKG. ASSESSMENT/PLAN: 1. Chest pain, unspecified type - ICD9: 786.50, ICD10: R07.9 (primary diagnosis) Patient with known CAD with new onset chest pain with exertion. EKG negative for ischemia today. Overdue for f/u with cardiology. Last stress more than 1 year ago. Will repeat stress echo and give rx for nitro PRN. Continue to work on smoking cessation and heart healthy diet. Red flags for re-assessment reviewed with patient in detail. Will forward to his cloth sponger as MARIELLE. - ECG COMPLETE - XR CHEST 2V FRONTAL/LAT - CBC + DIFF - COMP METABOLIC PANEL - LIPID PANEL, NONFASTING - NITROGLYCERIN 0.4 MG SUBLINGUAL TABLET - PERFLUTREN LIPID MICROSPHERES 1.1 MG/ML INJECTION IN NS 10 ML - SODIUM CHLORIDE 0.9 % (FLUSH) INJECTION SYRINGE - STRESS ECHO TREADMILL 2. Coronary artery disease involving [place] coronary artery of [place] heart without angina pectoris - ICD9: 414.01, ICD10: I25.10 See above. - CBC + DIFF - COMP METABOLIC PANEL - LIPID PANEL, NONFASTING - NITROGLYCERIN 0.4 MG SUBLINGUAL TABLET - PERFLUTREN LIPID MICROSPHERES 1.1 MG/ML INJECTION IN NS 10 ML - SODIUM CHLORIDE 0.9 % (FLUSH) INJECTION SYRINGE - STRESS ECHO TREADMILL 3. Chronic obstructive pulmonary disease, unspecified COPD type (HCC) - ICD9: 496, ICD10: J44.9 Stable. Recommended he continue to work on smoking cessation. 4. Hyperlipidemia, unspecified hyperlipidemia type - ICD9: 272.4, ICD10: E78.5 - Control undetermined, due for labs - Continue current medications - Counseled on healthy diet and regular exercise - CBC + DIFF - COMP METABOLIC PANEL - LIPID PANEL, NONFASTING - NITROGLYCERIN 0.4 MG SUBLINGUAL TABLET 5. Tobacco use - ICD9: 305.1, ICD10: Z72.0 - Cessation encouraged. - Physiologic and physical aspects of tobacco addiction as well as strategies for quitting were discussed. - Counseling was given focusing on the harmful effects of this addiction especially given the patient's medical condition(s) which will be worsened because of the chemicals in tobacco. 6. Benign prostatic hyperplasia without lower urinary tract symptoms - ICD9: 600.00, ICD10: N40.0 Asymptomatic without rx. I spent a total of 40 minutes on the date of the service which included preparing to see the patient, [id number] patient care, completing clinical documentation, obtaining and/or reviewing separately obtained history, performing a medically appropriate examination, counseling and educating the patient/family/caregiver, ordering medications, tests, or procedures, and independently interpreting results (not separately reported). Pacheco Linares MD documented in this encounter [facility] 07-11-2022 Miscellaneous Notes Pt notified via [facility] EHR of PCP response below. Christa Jean Ma I will order labs at his appointment. documented in this encounter [facility] 05-26-2022 Note Patient Outreach (DANIELLE VIGIL) COLUMBA AG ([id number]) 1950 M Date Time Provider Department 05/26/22 MARIAM HERNÁNDEZ During your visit today, we recorded the following information about you: Mariam Hernández MA 05/26/2022 2:22 PM Signed POPULATION HEALTH NAVIGATION OUTREACH Action/FYI Lv Plextronicst message sent ANNUAL MEDICARE WELLNESS EXAM INFLUENZA(1) due on 12/26/2021 Patient Identified by Name and : NO Outreach Outcome/Action Unable to reach patient: Left message [email or web address] message sent Did you use a PCP flex slot to schedule this appointment? N/A Reason for Outreach Care Gap or Scheduling/Wellness visits Payer: Payor: MEDICARE / Plan: MEDICARE A AND B / Product Type: Medicare / Care Gap Reviewed:: Annual Wellness visit Flu Vaccine Reminder: Reminder note to check Health Maintenance for items below Health Maintenance items due: ALPHA-1 ANTITRYPSIN DEFICIENCY SCREENING Never done DTAP,TDAP,TD(2 - Td or Tdap) due on 11/14/2020 INFLUENZA(1) due on 12/26/2021 LDL CHOLESTEROL due on 04/12/2022 ADVANCE DIRECTIVE DISCUSSION Never done DEPRESSION ASSESSMENT Never done Navigation Signature: Mariam Hernández MA May 26, 2022 9:20 AM Allergies As of Date: 05/26/2022 (No Known Allergies) Date Reviewed: 10/11/2021 Reviewed by: Suzanne Barrios LPN - Fully Assessed Reason for Visit: Population Health Navigation Outreach [3910] Cmt: ACO ASHVIN PCSA Prescriptions as of 05/26/2022 - atorvastatin (LIPITOR) 80 mg tablet Take 1 tablet by mouth once daily. - doxylamine succinate (SLEEP AID ORAL) Take by mouth. 3 at bedtime - albuterol HFA (VENTOLIN HFA) 90 mcg/actuation inhaler Inhale 2 Puffs as instructed every 4 hours as needed for Wheezing/Shortness of Breath. - aspirin, enteric coated (ASPIRIN, ENTERIC COATED) 81 mg EC tablet Take 81 mg by mouth once daily. Problem List As Of Date 05/26/2022 Noted Resolved Hyperlipidemia [E78.5] COPD (chronic obstructive pulmonary disease) (H* Tobacco use [Z72.0] Coronary artery disease [I25.10] Family history of ischemic heart disease [Z82.4*04/16/2016 External hemorrhoids [K64.4] BPH (benign prostatic hyperplasia) [N40.0] Screening for ischemic heart disease (IHD) [Z13*05/21/2020 Encounter Status:Closed by MARIAM HERNÁNDEZ on 05/26/22 [facility] 05-26-2022 Note HNO ID: [id number] Author: Mariam Hernández MA Service: ? Author Type: Internal Audit Senior Manager Type: Progress Notes Filed: 05/26/2022 2:22 PM Note Text: POPULATION HEALTH NAVIGATION OUTREACH Action/FYI Lvm Plextronicst message sent ANNUAL MEDICARE WELLNESS EXAM INFLUENZA(1) due on 12/26/2021 Patient Identified by Name and : NO Outreach Outcome/Action Unable to reach patient: Left message MyChart message sent Did you use a PCP flex slot to schedule this appointment? N/A Reason for Outreach Care Gap or Scheduling/Wellness visits Payer: Payor: MEDICARE / Plan: MEDICARE A AND B / Product Type: Medicare / Care Gap Reviewed:: Annual Wellness visit Flu Vaccine Reminder: Reminder note to check Health Maintenance for items below Health Maintenance items due: ALPHA-1 ANTITRYPSIN DEFICIENCY SCREENING Never done DTAP,TDAP,TD(2 - Td or Tdap) due on 11/14/2020 INFLUENZA(1) due on 12/26/2021 LDL CHOLESTEROL due on 04/12/2022 ADVANCE DIRECTIVE DISCUSSION Never done DEPRESSION ASSESSMENT Never done Navigation Signature: Mariam Hernández MA May 26, 2022 9:20 AM [facility] 05-26-2022 History of Presen t illness Narrative POPULATION HEALTH NAVIGATION OUTREACH Action/FYI Lvm Plextronicst message sent ANNUAL MEDICARE WELLNESS EXAM INFLUENZA(1) due on 12/26/2021 Patient Identified by Name and : NO Outreach Outcome/Action Unable to reach patient: Left message [email or web address] message sent Did you use a PCP flex slot to schedule this appointment? N/A Reason for Outreach Care Gap or Scheduling/Wellness visits Payer: Payor: MEDICARE / Plan: MEDICARE A AND B / Product Type: Medicare / Care Gap Reviewed:: Annual Wellness visit Flu Vaccine Reminder: Reminder note to check Health Maintenance for items below Health Maintenance items due: ALPHA-1 ANTITRYPSIN DEFICIENCY SCREENING Never done DTAP,TDAP,TD(2 - Td or Tdap) due on 11/14/2020 INFLUENZA(1) due on 12/26/2021 LDL CHOLESTEROL due on 04/12/2022 ADVANCE DIRECTIVE DISCUSSION Never done DEPRESSION ASSESSMENT Never done Navigation Signature: Mariam Hernández MA May 26, 2022 9:20 AM documented in this encounter [facility] 10-11-2021 History of Presen t illness Narrative Chief Complaint Patient presents with: Follow Up HPI Columba Ag is a 71 year old male who presents here today for Above Complaints. History of CAD managed by Dr. Chamorro-cardiology. No changes to regimen at last OV in April. Patient without angina at that time. Recommended 1 year follow up. Taking Lipitor as prescribed without side effects. COPD: Patient notes rare albuterol use once every couple weeks for tightness with breathing. Working well for symptoms. Started smoking again about 2 months ago when grand daughter moved in. Up to 1/3 pack per day. Not ready to quit yet. BPH: doing well without medication. Getting up once at night to urinate. Denies weak stream, straining, hematuria. Right index finger occasionally sticking on flexion. Able to straighten on own without pain. No recent injury. Colonoscopy normal in June. Repeat in 10 years. Has not gotten 2nd COVID booster and does not think he will. Discussed risks and benefits. Past medical history, appointments, medications, allergies reviewed. Previous Medical History PAST MEDICAL HISTORY Diagnosis Date BPH (benign prostatic hyperplasia) COPD (chronic obstructive pulmonary disease) (HCC) Normal PFT 2019 Coronary artery disease 100% Cx, 50% LAD Eczema External hemorrhoids Hyperlipidemia Tobacco use Previous Surgical History PAST SURGICAL HISTORY Procedure Laterality Date COLONOSCOPY COLONOSCOPY 07/09/2021 repeat in 10 years EYE SURGERY HX HEART CATHETERIZATION 2012 Family History FAMILY HISTORY Problem Relation Age of Onset Coronary Artery Disease Father Lipids Father Alcohol/Drug Mother alcohol Cancer Mother lung Coronary Artery Disease Brother Coronary Artery Disease Maternal Uncle Patient Allergies ALLERGIES No Known Allergies Current Medications Current Outpatient Medications on File Prior to Visit Medication Sig atorvastatin (LIPITOR) 80 mg tablet Take 1 tablet by mouth once daily. doxylamine succinate (SLEEP AID ORAL) Take by mouth. 3 at bedtime albuterol HFA (VENTOLIN HFA) 90 mcg/actuation inhaler Inhale 2 Puffs as instructed every 4 hours as needed for Wheezing/Shortness of Breath. aspirin, enteric coated (ASPIRIN, ENTERIC COATED) 81 mg EC tablet Take 81 mg by mouth once daily. No current facility-administered medications on file prior to visit. Social History Social History Tobacco Use Smoking status: Current Every Day Smoker Packs/day: 0.50 Years: 37.00 Pack years: 18.50 Types: Cigarettes Last attempt to quit: 02/10/2021 Years since quittin.6 Smokeless tobacco: Never Used Substance Use Topics Alcohol use: Yes Alcohol/week: 35.0 standard drinks Types: 14 Cans of Beer (12oz) per week Drug use: No Review of Symptoms REVIEW OF SYSTEMS GENERAL: No weight loss, malaise or fevers RESPIRATORY: Negative for cough, hemoptysis, wheezing, COPD, dyspnea or shortness of breath CARDIOVASCULAR: Negative for chest pain, leg swelling, hypertension, CHF or palpitations GI: No nausea, vomiting, or diarrhea SKIN: Negative for lesions, rash, and itching EXAM: BP 130/72 Pulse 70 Resp 16 Wt 69.4 kg (153 lb) SpO2 98% BMI 23.61 kg/m General Appearance: Well appearing, alert, in no acute distress, well-hydrated, well nourished.. Skin: Skin color, texture, turgor normal, no suspicious rashes or lesions. Lungs: Lungs clear to auscultation. No wheezing, rhonchi, rales.. Heart: RRR without murmur, gallop, or rubs. No ectopy. Abdomen: Normal abdominal exam, Abdomen soft, non-tender. Bowel sounds normal. No masses, organomegaly. Extremities: No deformities, edema, skin discoloration, clubbing or cyanosis. Good capillary refill. . Musculoskeletal: No joint swelling, deformity, or tenderness. Normal ROM of right index finger without trigger finger today. Health Maintenance List SHINGRIX VACCINE(1 of 2) Never done ADVANCE DIRECTIVE DISCUSSION Never done COVID-19 VACCINE(4 - Booster for Moderna series) due on 08/28/2021 DTAP,TDAP,TD(2 - Td or Tdap) due on 03/11/2022 DEPRESSION SCREENING due on 2022 LDL CHOLESTEROL due on 04/12/2022 ANNUAL PCP TEAM CHRONIC DISEASE VISIT due on 04/12/2022 DIABETES SCREEN due on 04/12/2024 LIPID SCREEN due on 04/12/2026 COLORECTAL CANCER SCREENING due on 07/10/2031 SPIROMETRY Completed ABDOMINAL AORTIC ANEURYSM SCREENING Completed INFLUENZA Completed HEPATITIS C SCREENING Completed PNEUMOCOCCAL: 65+ Completed Data reviewed Component Latest Ref Rng & Units 03/11/2021 04/12/2021 Protein, Total 6.3 - 8.0 g/dL 7.5 Albumin 3.9 - 4.9 g/dL 4.6 Calcium 8.5 - 10.2 mg/dL 9.4 Bilirubin, Total 0.2 - 1.3 mg/dL 0.4 Alkaline Phosphatase 38 - 113 U/L 77 AST 14 - 40 U/L 27 Glucose 74 - 99 mg/dL 89 BUN 9 - 24 mg/dL 14 Creatinine 0.73 - 1.22 mg/dL 1.01 Sodium 136 - 144 mmol/L 139 Potassium 3.7 - 5.1 mmol/L 4.5 Chloride 97 - 105 mmol/L 104 CO2 22 - 30 mmol/L 27 Anion Gap 9 - 18 mmol/L 8 (L) ALT 10 - 54 U/L 21 eGFR- >60 eGFR-All Other Races . >60 WBC 3.70 - 11.00 k/uL 7.51 RBC 4.20 - 6.00 m/uL 4.52 Hemoglobin 13.0 - 17.0 g/dL 13.5 Hematocrit 39.0 - 51.0 % 42.2 MCV 80.0 - 100.0 fL 93.4 MCH 26.0 - 34.0 pG 29.9 MCHC 30.5 - 36.0 g/dL 32.0 RDW-CV 11.5 - 15.0 % 13.9 Platelet Count 150 - 400 k/uL 272 MPV 9.0 - 12.7 fL 10.5 Absolute nRBC <0.01 k/uL <0.01 Total Cholesterol, Nonfasting <200 mg/dL 132 Triglycerides, Nonfasting <150 mg/dL 65 HDL Cholesterol, Nonfasting >39 mg/dL 49 LDL Cholesterol, Nonfasting <100 mg/dL 70 Non HDL Cholesterol, Nonfasting <130 mg/dL 83 VLDL Cholesterol, Nonfasting <30 mg/dL 13 Total Chol/HDL Ratio, Nonfasting <5.10 mg/dL 2.69 LDL/HDL Ratio, Nonfasting <2.54 mg/dL 1.43 d Dimer <500 ng/mL FEU 340 ASSESSMENT/PLAN: 1. 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 Recheck labs in 6 months. Keep f/u with cardiology as scheduled. Discussed importance of smoking cessation. Red flags for re-assessment reviewed with patient in detail. - LIPID PANEL, NONFASTING - COMP METABOLIC PANEL - CBC 2. Chronic obstructive pulmonary disease, unspecified COPD type (HCC) - ICD9: 496, ICD10: J44.9 Controlled on current regimen. Continue albuterol PRN. Discussed importance of smoking cessation. 3. Benign prostatic hyperplasia without lower urinary tract symptoms - ICD9: 600.00, ICD10: N40.0 Asymptomatic without rx. Will monitor. 4. Hyperlipidemia, unspecified hyperlipidemia type - ICD9: 272.4, ICD10: E78.5 - good control - Continue current medication. - Encouraged following a low fat, low cholesterol diet. - Discussed the benefits of regular aerobic exercise and weight loss. 5. Tobacco use - ICD9: 305.1, ICD10: Z72.0 - Cessation encouraged. - Physiologic and physical aspects of tobacco addiction as well as strategies for quitting were discussed. - Counseling was given focusing on the harmful effects of this addiction especially given the patient's medical condition(s) which will be worsened because of the chemicals in tobacco. 6. Trigger index finger of right hand - ICD9: 727.03, ICD10: M65.321 Normal exam today. Discussed ice PRN. Call if worsening. 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 Chronic obstructive pulmonary disease, unspecified COPD type (HCC) Hyperlipidemia, unspecified hyperlipidemia type Tobacco use Tobacco use disorder Benign prostatic hyperplasia without lower urinary tract symptoms documented [facility] this [facility]* Diagnosis Coronary artery disease involving houlton coronary artery of h[place] heart without angina pectoris- Primary Chest pain, unspecified type Chronic obstructive pulmonary disease, unspecified COPD type (HCC) Hyperlipidemia, unspecified hyperlipidemia type Benign prostatic hyperplasia without lower urinary tract symptoms Tobacco use Tobacco use disorder Encounter for immunization Need for other specified prophylactic vaccination against single bacterial disease documented [facility] this [facility] ([facility] Outpatient Procedure (Urgent) - Pending Review Specialty Diagnoses / Procedures Referred By Contac t Referred To [facility] Diagnoses Chest pain, unspecified type Coronary artery disease involving houl[place] coronary artery of [place]oul[place] heart without angina pectoris Procedures STRESS ECHO TREADMILL ECHO TTHRC R-T 2D W/WO M-MODE COMPLETE REST&ST Pacheco Linares MD [address] [place] [address] [facility] [address] [place] [address] Referral ID Status Reason Start Date Expiration Date Visits Requested Visits Authorized [id number] Pending Review Auto-Generat ed Referral 10/17/2022 10/17/2023 1 1 * Outpatient Procedure (Routine) - Closed Specialty Diagnoses / Procedures Referred By Contac t Referred To [facility] Diagnoses Chest pain, unspecified type Procedures ECG COMPLETE ECG ROUTINE ECG W/LEAST 12 LDS W/I&R Pacheco Linares MD [address] [place] [address] [facility] [address] [place] [address] Referral ID Status Reason Start Date Expiration Date V isits Requested Visits Authorized [id number] Closed Auto-Generate d Referral 10/17/2022 10/17/2023 1 1 [facility] Advance Directives Documents on File Type Date Recorded Patient Postal Carrier Expl anation Advance Directive(s) 07/09/2021 10:36 AM Advance Directive(s) 07/08/2021 12:20 PM Advance Directive(s) 06/20/2021 7:33 AM Advance Directive(s) 05/22/2020 11:21 AM Documents on File Type Date Recorded Patient Postal Carrier Expl anation Advance Directive(s) 05/22/2020 11:21 AM Documents on File Type Date Recorded Patient Postal Carrier Expl anation Advance Directive(s) 05/22/2020 11:21 AM Summary Purpose Family History No Family History Records Found Additional Source Comments Source Comments (unrecognize d section and content) In the event this informatio n is protected by the Federal Confidentiality of Alcohol and Drug Abuse Patient Records regulations: The Federal rules restrict any use of the information to criminally investigate or prosecute any alcohol or drug abuse patient.[facility] the event this information is protected by the Federal Confidentiality of Alcohol and Drug Abuse Patient Records regulations: The Federal rules restrict any use of the information to criminally investigate or prosecute any alcohol or drug abuse patient.[facility] the event this information is protected by the Federal Confidentiality of Alcohol and Drug Abuse Patient Records regulations: The Federal rules restrict any use of the information to criminally investigate or prosecute any alcohol or drug abuse patient.[facility] the event this information is protected by the Federal Confidentiality of Alcohol and Drug Abuse Patient Records regulations: The Federal rules restrict any use of the information to criminally investigate or prosecute any alcohol or drug abuse patient.[facility] the event this information is protected by the Federal Confidentiality of Alcohol and Drug Abuse Patient Records regulations: The Federal rules restrict any use of the information to criminally investigate or prosecute any alcohol or drug abuse patient.[facility] Center[facility] the event this information is protected by the Federal Confidentiality of Alcohol and Drug Abuse Patient Records regulations: The Federal rules restrict any use of the information to criminally investigate or prosecute any alcohol or drug abuse patient.[facility] Center[facility] the event this information is protected by the Federal Confidentiality of Alcohol and Drug Abuse Patient Records regulations: The Federal rules restrict any use of the information to criminally investigate or prosecute any alcohol or drug abuse patient.[facility] Center[facility] the event this information is protected by the Federal Confidentiality of Alcohol and Drug Abuse Patient Records regulations: The Federal rules restrict any use of the information to criminally investigate or prosecute any alcohol or drug abuse patient.[facility] Center[facility] the event this information is protected by the Federal Confidentiality of Alcohol and Drug Abuse Patient Records regulations: The Federal rules restrict any use of the information to criminally investigate or prosecute any alcohol or drug abuse patient.[facility] Reason for Visit (unrecogniz ed section and content) Specialty Diagnoses / Procedures Referred By Ruchi patel Referred To Contact [facility] Diagnoses Screening for colon cancer [Z12.11 Procedures COLONOSCOPY FLX W/REMOVAL OF FOREIGN BODY(S) [facility] [address] [place] [address] Referral ID Status Reason Start Date Expiration Date Visits Re quested Visits Authorized [id number] 1 1 Reason Onset Date Comments Population Health Navigation Outreach 05/26/2022 [facility] PCSA Reason Comments annual appt Reason Comments Results Reason Comments Stress Test Reason Onset Date Comments Refill Request 01/01/2023 Reason Comments Follow Up 3 month follow up Care Teams (unrecognized sec tion and content) Wind Commissioning Technician Relationship Specialty Start Date End Date Pacheco Linares MD [address], [place] [id number] PCP - General Family Medicine 03/27/16 Wind Commissioning Technician Relationship Specialty Start Date End Date Pacheco Linares MD [address], [place] [phone] PCP - General Family Medicine 03/27/16 Wind Commissioning Technician Relationship Specialty Start Date End Date Pacheco Linares MD [address], [place] [id number] PCP - General Family Medicine 03/27/16 Wind Commissioning Technician Relationship Specialty Start Date End Date Pacheco Linares MD [address], [place] [phone] PCP - General Family Medicine 03/27/16 Wind Commissioning Technician Relationship Specialty Start Date End Date Pacheco Linares MD [address], [place] [phone] PCP - General Family Medicine 03/27/16 (unrecognized sect ion and content) No Status Records Found INFORMATION SOURCE (unrecogn ized section and content) FOR RECORDS PERTAINING TO PATIENTS WHO ARE OR HAVE BEEN ENROLLED IN A CHEMICAL DEPENDENCY/SUBSTANCEABUSE PROGRAM, SOME INFORMATION MAY BE OMITTED. This clinical summary was aggregated from multiple sources. Caution should be exercised in using it in the provision of clinical care. This summary normalizes information from multiple sources, and as a consequence, information in this document may materially change the coding, format and clinical context of patient data. In addition, data may be omitted in some cases. CLINICAL DECISIONS SHOULD BE BASED ON THE PRIMARY CLINICAL RECORDS. [facility]. provides no warranty or guarantee of the accuracy or completeness of information in this document.
[2023-06-10 11:51] LABS: AST(SGOT) 24 U/L (15-37); Alanine Aminotransfer ALT/SGPT 30 U/L (16-61); CPK Total, Creatine Kinase 102 U/L (39-308); Cholesterol 109 mg/dL (200); High Density Lipoprotein 46 mg/dL; Triglycerides 49 mg/dL; Very Low Density Lipoprotein 10 mg/dL (5-40)
== END | disposition home or self-care (01) ==
LOC: LAB 09:55
PROVIDERS: PCP Family Medicine; Referring Provider Internal Medicine Cardiovascular Disease; Visit Provider Internal Medicine Cardiovascular Disease
DX: R07.9 Chest pain, unspecified (principal); F17.200 Nicotine dependence, unspecified, uncomplicated; E78.5 Hyperlipidemia, unspecified; I25.10 Atherosclerotic heart disease of native coronary artery without angina pectoris
CPT/HCPCS: 36415; 80061; 82550; 84450; 84460

== ENCOUNTER → 2024-01-05 | Outpatient (CLI) | payer MEDICARE, BC, SELFPAY ==
[2024-01-05 15:17] LABS: ALB/GLOB Ratio 0.9 RATIO (0.9-2.4); AST(SGOT) 19 U/L (15-37); Alanine Aminotransfer ALT/SGPT 15 U/L (16-61); Albumin, Serum 3.5 g/dL (3.2-5.0); Alkaline Phosphatase 79 U/L (45-117); Anion Gap 2 (5-15); BUN 13 mg/dL (7-18); BUN/Creat Ratio 15.1 RATIO (10-20); Bilirubin, Direct 0.15 mg/dL (0.00-0.30); Calcium,Total 9.3 mg/dL (8.5-10.1); Chloride 106 mmol/L (98-107); Cholesterol 128 mg/dL (200); Creatinine, Serum 0.86 mg/dL (0.70-1.30); EST Glomerular Filtration Rate 92 mL/min (>60); Est Glom Filt Rate - Afr Amer 112 mL/min (>60); Globulin 3.7 g/dL (2.2-4.2); Glucose 77 mg/dL (74-106); High Density Lipoprotein 49 mg/dL; Potassium 4.2 mmol/L (3.5-5.1); Protein, Total 7.2 g/dL (6.4-8.2); Sodium Level 139 mmol/L (136-145); Triglycerides 39 mg/dL; Very Low Density Lipoprotein 8 mg/dL (5-40)
== END | disposition home or self-care (01) ==
LOC: LAB 13:30
PROVIDERS: PCP Family Medicine; Referring Provider Internal Medicine Cardiovascular Disease; Visit Provider Internal Medicine Cardiovascular Disease
DX: E78.00 Pure hypercholesterolemia, unspecified (principal); I25.10 Atherosclerotic heart disease of native coronary artery without angina pectoris
CPT/HCPCS: 36415; 80053; 80061; 82248

== ENCOUNTER → 2024-02-11 | Outpatient (CLI) | payer MEDICARE, BC, SELFPAY ==
--- NOTE | 2024-02-11 16:03 | STRESSREP_ITS ---
Stress Test Report Date: 02/11/2024 Procedure: Exercise tolerance test/imaging study Indications: Chest pain Consent: Per the patient Procedure: The patient exercised on a Oracio protocol for 10 minutes and 14 seconds achieving a peak heart rate of 125 bpm (85% predicted maximal heart rate) with a peak blood pressure 140/60 mmHg and a peak MET capacity of 13.4 METs. The baseline ECG demonstrated sinus rhythm. The peak exercise ECG demonstrated no ischemic changes. There were no cardiac dysrhythmias pretest, during exercise, or recovery. The functional capacity was considered excellent for age. There was no complaint of chest discomfort during exercise or recovery. The examination was discontinued secondary to target heart rate being achieved. The patient was injected with 11.2 mCi of technetium 99m Cardiolite and subsequently rest SPECT Cardiolite nuclear imaging was obtained in the horizontal long, vertical long, and short axis views. Post-exercise, the patient was injected with 33.5 mCi of technetium 99m Cardiolite and subsequently stress SPECT Cardiolite nuclear imaging was obtained in the horizontal long, vertical long, and short axis views. A gated Cardiolite study at peak stress was obtained. Rest and stress SPECT Cardiolite nuclear imaging status post realignment, normalization, and attenuation correction, demonstrates the appearance of relative uniform tracer uptake and myocardial perfusion appearing within normal limits. There is end systolic thickening and brightening. The gated Cardiolite study demonstrates myocardial thickening and inward wall motion. The reported LVEF is 65%. Impression: 1. Technically adequate (percent predicted maximal heart rate greater than 85%) exercise tolerance test 2. Peak exercise ECG with no ischemic changes 3. There were no cardiac dysrhythmias pretest, during exercise, or recovery 4. Rest and stress SPECT Cardiolite nuclear imaging demonstrate relative uniform tracer uptake and myocardial perfusion appearing within normal limits. 5. The gated Cardiolite study reports an LVEF of 65%. This note was generated with [employer] software. It may contain incorrect words, spelling, and punctuation that were not noted in checking the note before signing.
== END | disposition home or self-care (01) ==
LOC: CVS 06:09
PROVIDERS: PCP Family Medicine; Referring Provider Internal Medicine Cardiovascular Disease; Visit Provider Internal Medicine Cardiovascular Disease
DX: R07.9 Chest pain, unspecified (principal); E78.5 Hyperlipidemia, unspecified; I25.10 Atherosclerotic heart disease of native coronary artery without angina pectoris; F17.200 Nicotine dependence, unspecified, uncomplicated
CPT/HCPCS: 78452; 93017; A9500

== ENCOUNTER → 2024-08-11 | Outpatient (CLI) | payer MEDICARE, BC, SELFPAY ==
--- NOTE | 2024-08-11 07:53 | AAAS_ITS ---
Reason For Study Reason For Study: AAA Screening Aorta Measurements Aorta Doppler Measurements Proximal aorta measures2.09 x 2.03cm. in cross-sectional Peak systolic flow velocities within the proximal aorta axis. measure 74.1 cm/sec. Proximal aorta measures1.94cm. in longitudinal axis. Peak systolic flow velocities within the mid aorta measure Mid aorta measures1.79 x 1.79cm. in cross-sectional axis. 79.6 cm/sec. Mid aorta measures1.73cm. in longitudinal axis. Peak systolic flow velocities within the distal aorta Distal aorta measures1.75 x 1.81cm. in cross-sectional axis.measure 72.3 cm/sec. Distal aorta measures1.78cm. in longitudinal axis. Left Iliac Artery Left iliac artery measures 1.08 x 1.06 cm. in the cross-sectional axis. Left iliac artery measures 1.06 cm. in the longitudinal axis. Peak systolic velocity in the left iliac artery measures 77.7 cm/sec. Right Iliac Artery Right iliac artery measures 1.04 x 1.04 cm. in the cross-sectional axis. Right iliac artery measures 0.96 cm. in the longitudinal axis. Peak systolic velocity in the right iliac artery measures 86.8 cm/sec. VL/AAA Screening Interpretation Summary Aorta patent, normal caliber Bilateral iliac arteries patent, normal caliber Ordering Physician: Levon Patten Referring Physician: Vinay Linares Performed By: Uri Cruz RVT
--- NOTE | 2024-08-11 07:53 | ECHOD_ITS ---
Reason For Study Reason For Study: ASHD Procedure This was a 2D Doppler, Color Flow transthoracic echocardiogram. The study was technically difficult. Due to respiratory interference. Exam performed in department. Left Ventricle Normal size and thickness. The left ventricular ejection fraction is 55 %. Normal diastololic function. Right Ventricle Normal right ventricle. Atria The left and right atria are normal. Mitral Valve Trivial mitral valve insufficiency. Tricuspid Valve Trivial tricuspid valve insufficiency. Unable to estimate RV systolic pressure due to insufficient tricuspid regurgitant envelope. Aortic Valve Trisinus/trileaflet aortic valve. Mild focal aortic valve calcification. Aortic sclerosis, no stenosis. Mild (1+) aortic valve insufficiency. Pulmonic Valve The pulmonic valve is not well visualized. Great Vessels Normal sized aortic root. Pericardium/Pleural No pericardial effusion. MMode/2D Measurements & Calculations LVIDd: 4.2 cm IVSd: 1.1 cm Ao root diam: 3.5 cm LVIDs: 3.2 cm LVPWd: 1.0 cm RVDd: 2.9 cm FS: 24.6 % LAV(MOD-bp): 48.9 ml LVAd ap4: 22.7 cm2 SV(MOD-sp4): 34.8 ml LAV(MOD-bp) Indexed: 28.6 ml/m2 LVLd ap4: 7.6 cm SI(MOD-sp4): 20.4 ml/m2 LAV(MOD-sp2): 64.7 ml EDV(MOD-sp4): 59.5 ml LAV(MOD-sp4): 30.6 ml EDV(sp4-el): 57.4 ml LVAs ap4: 13.4 cm2 LVLs ap4: 6.5 cm ESV(MOD-sp4): 24.7 ml ESV(sp4-el): 23.2 ml EF(MOD-sp4): 58.5 % EF(sp4-el): 59.5 % SV(sp4-el): 34.1 ml LA A4 area: 13.0 cm2 LA dimension(2D): 2.9 cm RA A4 area: 15.6 cm2 TAPSE: 2.2 cm Time Measurements MV dec time: 0.18 sec Doppler Measurements & Calculations MV E max emmett: 65.3 cm/sec Lat Peak E' Emmett: 9.1 cm/sec Med Peak E' Emmett: 7.6 cm/sec MV A max emmett: 58.9 cm/sec E/E' lat: 7.1 E/E' med: 8.6 MV E/A: 1.1 MV V2 max: 72.6 cm/sec MV P1/2t max emmett: 61.8 cm/sec Ao V2 max: 98.3 cm/sec MV max P.1 mmHg MV P1/2t: 60.6 msec Ao max P.9 mmHg MV V2 mean: 38.9 cm/sec Ao V2 mean: 68.3 cm/sec MV mean P.71 mmHg MV dec slope: 298.6 cm/sec2 Ao mean P.1 mmHg MV V2 VTI: 23.4 cm MVA(P1/2t): 3.6 cm2 Ao V2 VTI: 25.5 cm AV (velocity ratio): 0.83 LV V1 max: 91.1 cm/sec TR max emmett: 223.1 cm/sec LV V1 max P.3 mmHg TR max P.9 mmHg LV V1 mean P.9 mmHg LV V1 mean: 65.1 cm/sec LV V1 VTI: 21.2 cm ECHO/Echo Complete Interpretation Summary The left ventricular ejection fraction is 55 %. Aortic sclerosis, no stenosis. Mild (1+) aortic valve insufficiency. Ordering Physician: Sneha Dunaway Referring Physician: Vinay Linares Performed By: Stephany Maciel, SHANECS, RVT
== END | disposition home or self-care (01) ==
LOC: CVS 07:51
PROVIDERS: PCP Family Medicine; Referring Provider Internal Medicine Cardiovascular Disease; Visit Provider Internal Medicine Cardiovascular Disease
DX: I25.10 Atherosclerotic heart disease of native coronary artery without angina pectoris (principal); E78.5 Hyperlipidemia, unspecified; F17.200 Nicotine dependence, unspecified, uncomplicated
CPT/HCPCS: 76706; 93306